=== PATIENT | male | born 1965 | race Two or more races ===

== ENCOUNTER → 2017-03-23 | Outpatient (CLI) | payer OTHER ==
--- NOTE | 2017-04-01 23:28 | ECWPNPC ---
PATIENT NAME: SEDRICK FORMAN : 1965 GENDER: MALE VISIT DATE: 03/23/2017 DISCHARGE DATE: 03/23/17 1445 VISIT LOCKED DATE TIME: PHYSICIAN: NHAN ESTES RESOURCE: NHAN ESTES REASON FOR APPOINTMENT 1. BACK PAIN HISTORY OF PRESENT ILLNESS HISTORY OF PRESENT ILLNESS: PAIN THE PATIENT DESCRIBES THE PAIN... FALL RISK SCREENING: SCREENING :NO FALLS IN THE PAST YEAR TODAY'S VISIT: NOTES: REFERRED BY DR BISWAS FOR NECK AND BACK PAIN. NECK IS THE WORST. HAD CERVICAL DISC FUSION WITH DR LOW 2000. HAD RELIEF OF NECK PAIN AND MIGRAINES. HAD NUMBNESS BEFORE SURGERY AND THIS IS RECURRRING IN LEFT ARM AND SHOULDER BLADE AREA. HAD SOME INJECTIONS AFTER SURGERY AND THIS WAS NOT HELPFUL. HAS BEEN WORKING WITH DR BISWAS TO START DBL PROCESS. EVERYTHING HURTS. LOWER BACK IS BETTER SINCE OUT OF WORK SINCE DECEMBER. JUST STARTED PT AT [facility]. IS BEING SCHEDULED FOR RIGHT HAND SURGERY AT [facility]. NO RECENT VISITS TO SURGEON. HAS NOT HAD A NCS. SLEEP IS DISRUPTED AND HAS BEEN FOR YEARS. STATES DID NOT LIKE TRAMADOLFEELING - GAVE NO RELIEF. DID HAVE SOME RELIEF WITH MELOXICAM. CURRENT MEDICATIONS UNKNOWN LISINOPRIL 10 MG TABLET ORAL DAILY UNKNOWN MELOXICAM 15 MG TABLET ORAL DAILY UNKNOWN OMEPRAZOLE 20 MG CAPSULE DELAYED RELEASE ORAL DAILY UNKNOWN TRAMADOL HCL 50 MG TABLET 1 TO 2 ORAL BID MEDICATION LIST REVIEWED AND RECONCILED WITH THE PATIENT PAST MEDICAL HISTORY ASTHMA GERD ECZEMA HERNIATED DISC MEASLES MUMPS ALLERGIES N.K.D.A. SURGICAL HISTORY CERVICAL FUSION C6-7 LEFT PARTIAL HIP ARTHROPLASTY R LEG VERICOSE VEIN STRIPPING X3 FAMILY HISTORY FATHER: ALIVE 77 YRS MOTHER: ALIVE 77 YRS 2 BROTHER(S) , 2 SISTER(S) - HEALTHY. 1 SON(S) . SOCIAL HISTORY GENERAL: TOBACCO USE ARE YOU A:FORMER SMOKER HOW LONG HAS IT BEEN SINCE YOU LAST SMOKED?> 10 YEARS LUNG CANCER SCREENING SMOKING STATUS:FORMER SMOKER ALCOHOL SCREENING POINTS0 INTERPRETATIONNEGATIVE SAMARITAN [id number] BAPTIST LANGUAGE LANGUAGES SPOKEN:TELUGU EDUCATION LEVEL OF EDUCATION:HIGH SCHOOL LEARNING BARRIERS / SPECIAL NEEDS VISION IMPAIRED?YES :CORRECTIVE LENSES COGNITIVELY IMPAIRED?NO READINESS TO LEARN?YES LEARNING PREFERENCES?YES :BOOKLETS, HANDOUTS EMOTIONAL BARRIERS?NO SPECIAL DEVICES?NO ADVANCE DIRECTIVES HEALTH CARE PROXY?NO WOULD YOU LIKE MORE INFORMATION?NO DO YOU HAVE A DNR?NO WOULD YOU LIKE MORE INFORMATION?NO LIVING WILL?NO WOULD YOU LIKE MORE INFORMATION?NO POWER OF DIRECTOR GLOBAL MARKET RESEARCH?NO HOSPITALIZATION/MAJOR DIAGNOSTIC PROCEDURE SURGERY RELATED REVIEW OF SYSTEMS REVIEWED BY: PROVIDER: NHAN HALE . CONSTITUTIONAL: ANY CHANGE IN YOUR MEDICAL CONDITION? NO . CHILLS NO . FEVER NO . INFECTION: DO YOU HAVE NEW INFECTIONS? NO . DO YOU HAVE HISTORY OF MRSA? NO . MUSCULOSKELETAL: ANY NEW PATTERNS OF PAIN OR NUMBNESS? NO . GASTROENTEROLOGY: ANY NEW CHANGE IN BOWEL CONTROL? NO . GENITOURINARY: ANY NEW CHANGE IN BLADDER CONTROL? NO . IS THERE A CHANCE YOU COULD BE ? NO . HEMATOLOGY/LYMPH: DO YOU TAKE ANY BLOOD THINNERS? (FOR EXAMPLE- COUMADIN, PLAVIX, AGGRENOX, PLATEL, PRADAXA, OR XARELTO) NO . WHEN WAS YOUR LAST DOSE? DATE: TIME: . NEUROLOGY: HAVE YOU FALLEN IN THE PAST 6 MONTHS? NO . ANY NEW EXTREMITY NUMBNESS OR WEAKNESS? NO . HEADACHE MIGRAINES CEASED AFTER CERVICAL FUSION - RARE MIGRAINE SINCE . CARDIOLOGY: DO YOU HAVE A PACEMAKER OR DEFIBRILLATOR? NO . RESPIRATORY: HAVE YOU BEEN SICK IN THE PAST WEEK? NO . FEVER NO . FLU LIKE SYMPTOMS? NO . COUGH NO . INTEGUMENTARY: DO YOU HAVE ANY RASHES OR OPEN SORES? NO . ALLERGIC/IMMUNO: ARE YOU ALLERGIC TO SHELLFISH OR IV DYE? NO . ANY NEW ALLERGIES? NO . PSYCHIATRIC: DO YOU HAVE THOUGHTS OF HURTING YOURSELF OR SOMEONE ELSE? NO . ARE YOU ABUSED, NEGLECTED, OR IN AN UNSAFE ENVIRONMENT? NO . ENDOCRINOLOGY: ARE YOU DIABETIC? NO . OTHER: DO YOU NEED ANY PRESCRIPTIONS? NO . IF YES, PLEASE LIST: ____ . ANY NEW PROBLEMS WITH YOUR MEDICATIONS? NO . WHEN DID YOU LAST EAT? ____ . WHEN DID YOU LAST DRINK? ____ . WHAT DID YOU LAST DRINK? ____ . NAME OF PERSON DRIVING YOU HOME? ____ . DO YOU HAVE ANY OTHER QUESTIONS OR CONCERNS NO . VITAL SIGNS WT 240 LBS, HT 69 IN, BMI 35.44 INDEX, BP 139/91 MM HG, HR 79 /MIN, RR 18 /MIN, TEMP 98.6 F, OXYGEN SAT % 97%, NA INITIALS AW 1338. EXAMINATION GENERAL EXAMINATION: GENERAL APPEARANCE:MORBID OBESITY, WELL GROOMED. PSYCHALERT , ORIENTED X 3 , APPROPRIATE MOOD AND AFFECT . HEENT:NORMOCEPHALIC, NO LYMPHADENOPATHY, NO THYROMEGLY. LUNGS:CLEAR TO AUSCULTATION BILATERALLY, NO WHEEZES, RALES OR RHONCHI. HEART:HEART RATE REGULAR, NORMAL S1S2, NO MURMURS, CLICK OR RUBS, NO CAROTID BRUITS. MUSCULOSKELETAL:POINT TENDER OVER CERVICAL SPINOUS PROCESSES. DECREASED ROM WITH NECK FLEXION, EXTENSION AND ROTATION. TRIGGER POINTS:AND TIGHT FIBROUS BANDS IDENTIFIED OVER LEFT SCAPULA., MUSCLE STRENGTH TESTING 5/5 BILATERAL UPPER AND LOWER EXTREMITIES. MANAGER NEONATAL STRENGTH EQUAL AND STRONG. ABLE T RISE TO STANDING POSITION. TENDER WITH PALPATION OVER LUMBAR SPINOUS PROCESSES AND ACROSS THE LUMBOSACRAL AXIS. CAN FLEX TO 45 DEGREES, EXTEND TO 10 DEGREES. . NEUROLOGIC EXAM:MUSCLE TWITCHING IN FACE, HIGH FREQUENCY TREMOR IN L>R UPPER EXTREMITY. DTR'S 1+ IN BILATERAL UPPER AND LOWER EXTREMITIES. NO SENSORY DEFICIET. PALNTAR RESPONSE IS FLEXOR. NO CLONUS. ASSESSMENTS CERVICAL POST-LAMINECTOMY SYNDROME - M96.1 (PRIMARY) MYALGIA - M79.1 TREATMENT CERVICAL POST-LAMINECTOMY SYNDROME START TIZANIDINE HCL TABLET, 2 MG, 1 TABLET NEEDED, ORALLY, TAKE 1-2 TABS AT BEDTIME, 30 DAY(S), 60, REFILLS 1 [facility] MRI C SPINE W/O FOLL BY [id number],SUSAN M 03/23/2017 2:32:03 PM > INCREASED RADICULAR PAIN POST CERVICAL FUSION NOTES: SCHEDULE FOR EMG/NCS BILATERAL UPPER EXTREMITIES (SPECIAL ATTENTION LUE) S/P CERVICAL FUSIONCONTINUE PHYSICAL THERAPYGET TENNIS BALL AND USE THIS TO APPLY PRESSURE TO TRIGGER POINTS ALONG RIGHT SHOULDER BLADE. PROCEDURE CODES FA211 ESTABILISHED PATIENT [facility] CHARGE DISPOSITION & COMMUNICATION FOLLOW UP 1 MONTH (REASON: NECK/BACK PAIN) ELECTRONICALLY SIGNED BY MEREDITH COOK ON 04/01/2017 AT 04:59 PM EDT DISCLAIMER : THIS IS A VISIT SUMMARY EXTRACTED FROM THE [employer] CHART. IT IS NOT A COPY OF THE [employer] PROGRESS NOTE. ZAYNAB
== END ==
LOC: M PAIN 13:30
PROVIDERS: ATTEND Nurse Practitioner Family
DX: M96.1 Postlaminectomy syndrome, not elsewhere classified (principal); M79.1 Myalgia; Z79.891 Long term (current) use of opiate analgesic; Z79.899 Other long term (current) drug therapy; Z87.891 Personal history of nicotine dependence

== ENCOUNTER → 2017-05-08 | Outpatient (CLI) | payer OTHER ==
--- NOTE | 2017-05-31 00:54 | ECWPNPC ---
PATIENT NAME: SEDRICK FORMAN : 1965 GENDER: MALE VISIT DATE: 05/08/2017 DISCHARGE DATE: 05/08/17 1415 VISIT LOCKED DATE TIME: PHYSICIAN: NHAN ESTES RESOURCE: NHAN ESTES REASON FOR APPOINTMENT 1. REVIEW MRI AND NCS HISTORY OF PRESENT ILLNESS HISTORY OF PRESENT ILLNESS: PAIN THE PATIENT DESCRIBES THE PAIN... FALL RISK SCREENING: SCREENING :NO FALLS IN THE PAST YEAR TODAY'S VISIT: NOTES: RATES PAIN TODAY 4/10. DESCRIBES PAIN ACHING. PAIN IS CENTERED AT BASE OF NECK AND AROUND THE FRONT OF THE NECK AND AT THE LEFT SHOULDER AND AT THE LEFT SHOULDER BLADE. . CURRENT MEDICATIONS TAKING LISINOPRIL 10 MG TABLET ORAL DAILY TAKING MELOXICAM 15 MG TABLET ORAL DAILY TAKING OMEPRAZOLE 20 MG CAPSULE DELAYED RELEASE ORAL DAILY NOT-TAKING TIZANIDINE HCL 2 MG TABLET 1 TABLET NEEDED ORALLY TAKE 1-2 TABS AT BEDTIME NOT-TAKING TRAMADOL HCL 50 MG TABLET 1 TO 2 ORAL BID MEDICATION LIST REVIEWED AND RECONCILED WITH THE PATIENT PAST MEDICAL HISTORY ASTHMA GERD ECZEMA HERNIATED DISC MEASLES MUMPS ALLERGIES N.K.D.A. SURGICAL HISTORY CERVICAL FUSION C6-7 LEFT PARTIAL HIP ARTHROPLASTY R LEG VERICOSE VEIN STRIPPING X3 RIGHT HAND CYST REMOVED AND TRIGGER FINGER Mar HOSPITALIZATION/MAJOR DIAGNOSTIC PROCEDURE SURGERY RELATED REVIEW OF SYSTEMS REVIEWED BY: PROVIDER: NHAN ESTES ROOF TECHNICIAN . CONSTITUTIONAL: ANY CHANGE IN YOUR MEDICAL CONDITION? NO . CHILLS NO . FEVER NO . INFECTION: DO YOU HAVE NEW INFECTIONS? NO . DO YOU HAVE HISTORY OF MRSA? NO . MUSCULOSKELETAL: ANY NEW PATTERNS OF PAIN OR NUMBNESS? NO . GASTROENTEROLOGY: ANY NEW CHANGE IN BOWEL CONTROL? NO . GENITOURINARY: ANY NEW CHANGE IN BLADDER CONTROL? NO . IS THERE A CHANCE YOU COULD BE ? NO . HEMATOLOGY/LYMPH: DO YOU TAKE ANY BLOOD THINNERS? (FOR EXAMPLE- COUMADIN, PLAVIX, AGGRENOX, PLATEL, PRADAXA, OR XARELTO) NO . WHEN WAS YOUR LAST DOSE? DATE: TIME: . NEUROLOGY: HAVE YOU FALLEN IN THE PAST 6 MONTHS? NO . ANY NEW EXTREMITY NUMBNESS OR WEAKNESS? NO . CARDIOLOGY: DO YOU HAVE A PACEMAKER OR DEFIBRILLATOR? NO . RESPIRATORY: HAVE YOU BEEN SICK IN THE PAST WEEK? NO . FEVER NO . FLU LIKE SYMPTOMS? NO . COUGH NO . INTEGUMENTARY: DO YOU HAVE ANY RASHES OR OPEN SORES? NO . ALLERGIC/IMMUNO: ARE YOU ALLERGIC TO SHELLFISH OR IV DYE? NO . ANY NEW ALLERGIES? NO . PSYCHIATRIC: DO YOU HAVE THOUGHTS OF HURTING YOURSELF OR SOMEONE ELSE? NO . ARE YOU ABUSED, NEGLECTED, OR IN AN UNSAFE ENVIRONMENT? NO . ENDOCRINOLOGY: ARE YOU DIABETIC? NO . OTHER: DO YOU NEED ANY PRESCRIPTIONS? NO . IF YES, PLEASE LIST: ____ . ANY NEW PROBLEMS WITH YOUR MEDICATIONS? NO . WHEN DID YOU LAST EAT? ____ . WHEN DID YOU LAST DRINK? ____ . WHAT DID YOU LAST DRINK? ____ . NAME OF PERSON DRIVING YOU HOME? ____ . DO YOU HAVE ANY OTHER QUESTIONS OR CONCERNS NO . VITAL SIGNS WT 253 LBS, HT 69 IN, BMI 37.36 INDEX, BP 173/95 MM HG, HR 77 /MIN, RR 16 /MIN, TEMP 98.1 F, OXYGEN SAT % 98, REVIEWED BY: NL. EXAMINATION GENERAL EXAMINATION: PSYCHALERT , ORIENTED X 3 , SOMEWHAT ANXIOUS. LUNGS:CLEAR TO AUSCULTATION BILATERALLY. HEART:HEART RATE REGULAR. MUSCULOSKELETAL:POINT TENDERNESS OVER CERVICAL AND LUMBAR SPINOUS PROCESSES. SLOW TO RISE TO STANDING POSITION. DECREASED DRAW BENCH OPERATOR STRENGTH LEFT UPPER EXTREMITY AND WITH LEFT HAMSTRING AND PLANTAR EXTENSION. , TRIGGER POINTS AND TIGHT FIBROUS BANDS IDENTIFIED OVER CERVICAL PARASPINOUS MUSCLES AND ACROSS TRAPEZIUS BILATERALLY. DIAGNOSTIC TESTS REVIEWEDEMG/NCS COMPLETED 05/03/15. DEMNSTRATES MILD TO MODERATE COMPRESSION OF LEFT ULNAR NERVE ACROSS THE ELBOW AND BILATERAL SUBACUTE C5-6 AND C6-7 RADICULOPATHY. MRI CERVICAL SPINE COMPLETED 04/20/17 DEMONSTRATES ANTERIOR FUSION PLATES WITH SPACER AT C6-7. THERE IS A SMALL SYRINX AT THIS LEVEL MEASURING 5MM IN LENGTH. THERE ARE DEGENERATIVE CHANGES AT THE C5-6 LEVEL WITH CENTRAL CANAL STENOSIS AND LEFT NEURAL FORAMINAL NARROWING. THERE IS STRAIGHTENING OF THE NORMAL LORDOSIS. MRI OF LUMBAR SPINE ALSO COMPLETED ON 04/20/17 DEMONSTRATES DEGENERATIVE CHANGES WITH FACET ARTHROSIS AT L4-5 MILD DISC PRTRUSION AT L4-5 AND L5-S1 WITH BILATERAL NEURAL FORAMENAL NARROWING AT L5-S1 WITH ENCROACHMENT ON THE LEFT L5 NERVE ROOT. . ASSESSMENTS CERVICAL POST-LAMINECTOMY SYNDROME - M96.1 (PRIMARY) MYALGIA - M79.1 LUMBAR DISC DISPLACEMENT WITHOUT MYELOPATHY - M51.26 LUMBAR FACET ARTHROPATHY - M12.88 TREATMENT CERVICAL POST-LAMINECTOMY SYNDROME START INDOMETHACIN CAPSULE, 50 MG, 1 CAPSULE WITH FOOD OR MILK, ORALLY, TWICE A DAY, 30 DAY(S), 60, REFILLS 1 STOP MELOXICAM TABLET, 15 MG, ORAL, DAILY STOP TIZANIDINE HCL TABLET, 2 MG, 1 TABLET NEEDED, ORALLY, TAKE 1-2 TABS AT BEDTIME TRIGGER POINT 3 + NHAN MO 05/08/2017 2:01:58 PM > NECK LEFT SHOULDER BLADE NOTES: WALK EVERY DAY. [facility] REASON:LEFT CERVICAL RADICULOPATHY, LEFT ULNAR COMPRESSION, EVIDENCE OF CERVICAL SYRINX - S/P C6-67 FUSION PREVENTIVE MEDICINE REVIEWED PRE PROCEUDRE CARE AND WENT OVER WHAT TO EXPECT WITH TPI / PT EXPRESSED UNDERSTANDING OF ALL. PROCEDURE CODES FA211 ESTABILISHED PATIENT [facility] CHARGE DISPOSITION & COMMUNICATION FOLLOW UP AFTER INJECTION (REASON: NECK PAIN/BACK PAIN) ELECTRONICALLY SIGNED BY MEREDITH COOK ON 05/30/2017 AT 01:33 PM EDT DISCLAIMER : THIS IS A VISIT SUMMARY EXTRACTED FROM THE [employer] CHART. IT IS NOT A COPY OF THE [employer] PROGRESS NOTE. ZAYNAB
== END ==
LOC: M PAIN 13:15
PROVIDERS: ATTEND Nurse Practitioner Family
DX: M96.1 Postlaminectomy syndrome, not elsewhere classified (principal); M79.1 Myalgia; M51.26 Other intervertebral disc displacement, lumbar region; M12.88 Other specific arthropathies, not elsewhere classified, other specified site; J45.909 Unspecified asthma, uncomplicated; K21.9 Gastro-esophageal reflux disease without esophagitis; Z79.899 Other long term (current) drug therapy

== ENCOUNTER → 2017-06-12 | Outpatient (CLI) | payer OTHER ==
[~2017-06-12] MED LIST: BUPIVACAINE HCL 0.25% 10 ML VIAL As Ordered ONE; BUPIVACAINE HCL 0.25% 30 ML VIAL As Ordered ONE; TRIAMCINOLONE ACETONIDE SUSP 40 MG/ML VIAL (J3301) As Ordered ONE; diazePAM 5 MG TAB As Ordered ONE
--- NOTE | 2017-06-25 00:03 | ECWPNPC ---
PATIENT NAME: SEDRICK FORMAN : 1965 GENDER: MALE VISIT DATE: 06/12/2017 DISCHARGE DATE: 06/12/17 1549 VISIT LOCKED DATE TIME: PHYSICIAN: JULIANA TAYLOR RESOURCE: JULIANA TAYLOR CURRENT MEDICATIONS TAKING LISINOPRIL 10 MG TABLET ORAL DAILY, NOTES: 06-12-17799 TAKING OMEPRAZOLE 20 MG CAPSULE DELAYED RELEASE ORAL DAILY, NOTES: 06-12-17799 TAKING CELECOXIB 200 MG CAPSULE 1 CAPSULE WITH FOOD ORALLY ONCE A DAY, NOTES: 06-12-17799 NOT-TAKING INDOMETHACIN 50 MG CAPSULE 1 CAPSULE WITH FOOD OR MILK ORALLY TWICE A DAY UNKNOWN TRAMADOL HCL 50 MG TABLET 1 TO 2 ORAL BID MEDICATION LIST REVIEWED AND RECONCILED WITH THE PATIENT PAST MEDICAL HISTORY ASTHMA GERD ECZEMA HERNIATED DISC MEASLES MUMPS ALLERGIES N.K.D.A. VITAL SIGNS WT 253 LBS, HT 69 IN, BMI 37.36 INDEX, BP 155/97 MM HG, HR 68 /MIN, RR 18 /MIN, TEMP 98.1 F, OXYGEN SAT % 97%, NA INITIALS SC 13:46. ASSESSMENTS MYALGIA - M79.1 (PRIMARY) PROCEDURES PN TRIGGER POINT INJECTION WITH STEROIDS PRE PROCEDURE DIAGNOSIS 1. MYALGIA 2. PAIN AT BILATERAL NECK AREA, BILATERAL SHOULDER AREA, AND BILATERAL THORACIC AREA POST PROCEDURE DIAGNOSIS 1. MYALGIA 2. PAIN AT BILATERAL NECK AREA, BILATERAL SHOULDER AREA, AND BILATERAL THORACIC AREA PROCEDURE TRIGGER POINT INJECTION AT BILATERAL NECK AREA, BILATERAL SHOULDER AREA, AND BILATERAL THORACIC AREA SURGEON DR. JULIANA TAYLOR UNDERCAR SPECIALIST NONE ANESTHESIA LOCAL PRE PROCEDURE NOTE THE PATIENT HAS A HISTORY OF CHRONIC PAIN AT THE RIGHT AND LEFT NECK AREA, RIGHT AND LEFT SHOULDER AREA AND RIGHT AND LEFT THORACIC AREA. I EVALUATE THE PATIENT AND REVIEWED THE CHART. THERE IS EVIDENCE OF BANDS OF TISSUE WITH RESTRICTION OF MOVEMENT AND PRESENCE OF TRIGGER POINT AT THE AFFECTED AREA. I WENT OVER THE RISKS, ALTERNATIVES, AND BENEFITS ASSOCIATED WITH THIS PROCEDURE. THE PATIENT WOULD LIKE TO PROCEED AND GIVE CONSENT TO PERFORMED THE PROCEDURE. THE PATIENT DENIES UNEXPLAINABLE WEIGHT LOSS, FEVER, CHILLS, OR NEW CHANGES IN URINARY OR BOWEL CONTROL DESCRIPTION OF PROCEDURE THE PATIENT WAS BROUGHT TO THE PROCEDURE ROOM AND PLACED IN THE SITTING POSITION. THE AREA WAS CLEANED WITH ALCOHOL. THE PROCEDURE WAS DONE USING ASE[employer]IC STERILE TECHNIQUE. I CHECKED LATERALITY AND THE LEVEL WHERE THE PROCEDURE WAS GOING TO BE PERFORMED WITH THE PATIENT AND THE SUPPORTING STAFF AT THE MOMENT OF THE TIME OUT IN THE PROCEDURE ROOM. USING A 25-GAUGE NEEDLE, TRIGGER POINTS WERE INJECTED AT THE RIGHT AND LEFT NECK AREA, RIGHT AND LEFT SHOULDER AREA AND RIGHT AND LEFT THORACIC AREA WITH A TOTAL OF 40 ML OF BUPIVACAINE 0.25% AND KENALOG 40 MG. THERE WAS NO EVIDENCE OF BLOOD, PARESTHESIA OR CEREBROSPINAL FLUID DURING THE PROCEDURE. THE PATIENT WAS SENT TO THE RECOVERY ROOM. THE PATIENT WAS MOVING THE EXTREMITIES AND DOING WELL. THERE WAS NO COMPLICATION DURING THE PROCEDURE POST PROCEDURE NOTE THE PATIENT WILL BE SEEN IN A FOLLOW UP IN THE NEXT FEW WEEKS. INSTRUCTIONS WERE GIVEN, QUESTIONS WERE ANSWERED, AND THE PATIENT EXPRESSED UNDERSTANDING AND AGREES WITH THE PLAN. I, SOLO CRUZ, DOCUMENTED THE ABOVE INFORMATION ACTING A SCRIBE FOR DR. TAYLOR. I HAVE REVIEWED THE ABOVE DOCUMENT, WRITTEN BY SOLO CARDENAS AND I VERIFY THAT IT IS ACCURATE PROCEDURE CODES 30673 INJECT TRIGGER POINTS 3/> DISPOSITION & COMMUNICATION FOLLOW UP 3 WEEKS ELECTRONICALLY SIGNED BY JULIANA TAYLOR MD ON 06/24/2017 AT 04:18 PM EST DISCLAIMER : THIS IS A VISIT SUMMARY EXTRACTED FROM THE [employer] CHART. IT IS NOT A COPY OF THE [employer] PROGRESS NOTE. MTDPatricio
== END ==
LOC: M PAIN 13:45
PROVIDERS: ATTEND Anesthesiology
DX: G89.29 Other chronic pain (principal); M79.1 Myalgia; K21.9 Gastro-esophageal reflux disease without esophagitis; Z79.899 Other long term (current) drug therapy
CPT/HCPCS: 20553; J3301

== ENCOUNTER → 2017-07-13 | Outpatient (CLI) | payer OTHER | LOC: M PAIN 10:45 | DX: M96.1 Postlaminectomy syndrome, not elsewhere classified (principal); M79.1 Myalgia; J45.909 Unspecified asthma, uncomplicated; K21.9 Gastro-esophageal reflux disease without esophagitis; Z96.642 Presence of left artificial hip joint; Z87.891 Personal history of nicotine dependence; Z79.899 Other long term (current) drug therapy | CPT/HCPCS: G0463 ==

== ENCOUNTER → 2017-08-10 | Outpatient (REF) | payer OTHER ==
[2017-08-10 11:46] LABS: BASO # 0.1 10^3/uL (0.0-0.2); BASO % 0.8 % (0.0-1.0); EOS # 0.3 10^3/uL (0.0-0.50); EOS % 4.5 % (0.0-3.0); HEMATOCRIT 42.4 % (42.0-52.0); HEMOGLOBIN 14.3 g/dl (14.0-18.0); IMMATURE GRANULOCYTE % 0.5 % (0-0); LYMPH # 1.9 10^3/uL (1.5-4.5); LYMPH % 29.7 % (24.0-44.0); MEAN CORPUSCULAR HEMOGLOBIN 29.4 pg (27.0-33.0); MEAN CORPUSCULAR HGB CONC 33.7 g/dl (32.0-36.5); MEAN CORPUSCULAR VOLUME 87.2 fl (80.0-96.0); MONO # 0.5 10^3/uL (0.0-0.8); NEUTROPHILS # 3.7 10^3/uL (1.8-7.7); NEUTROPHILS % 56.5 % (36.0-66.0); PLATELET COUNT, AUTOMATED 258 10^3/uL (150-450); RED BLOOD COUNT 4.86 10^6/uL (4.30-6.10); RED CELL DISTRIBUTION WIDTH 13.2 % (11.5-14.5); WHITE BLOOD COUNT 6.5 10^3/uL (4.0-10.0)
[2017-08-10 12:10] LABS: AMMONIA 34 uMOL/L (<32)
[2017-08-10 12:16] LABS: ERYTHROCYTE SEDIMENTATION RATE 20 mm/hr (0-20)
[2017-08-10 12:18] LABS: ESTIMATED AVERAGE GLUCOSE 117 MG/DL (60-110); HEMOGLOBIN A1c 5.7 %
[2017-08-10 12:28] LABS: ALBUMIN 3.9 GM/DL (3.2-5.2); ALBUMIN/GLOBULIN RATIO 1.18 (1.00-1.93); ALKALINE PHOSPHATASE 105 U/L (45-117); ALT/SGPT 47 U/L (12-78); ANION GAP 7 MEQ/L (8-16); AST/SGOT 27 U/L (7-37); BILIRUBIN,TOTAL 0.3 MG/DL (0.2-1.0); BLOOD UREA NITROGEN 17 MG/DL (7-18); CALCIUM LEVEL 8.9 MG/DL (8.5-10.1); CARBON DIOXIDE LEVEL 23 MEQ/L (21-32); CHLORIDE LEVEL 109 MEQ/L (98-107); CREATININE FOR GFR 0.92 MG/DL (0.70-1.30); GLOMERULAR FILTRATION RATE > 60.0 (>56); GLUCOSE, FASTING 107 MG/DL (70-105); POTASSIUM SERUM 4.4 MEQ/L (3.5-5.1); RHEUMATOID FACTOR QUANT 32.3 IU/ML (0-15.0); SODIUM LEVEL 139 MEQ/L (136-145); TOTAL PROTEIN 7.2 GM/DL (6.4-8.2)
[2017-08-10 16:31] LABS: VITAMIN B12 LEVEL 684 PG/ML
[2017-08-10 16:32] LABS: FOLATE 23.9 NG/ML
[2017-08-13 12:21] LABS: ALBUMIN 4.17 GM/DL (3.29-5.55); ALBUMIN % 57.9 % (55.8-66.1); ALPHA-1-GLOBULIN % 3.6 % (2.9-4.9); ALPHA-1-GLOBULINS 0.26 GM/DL (0.17-0.41); ALPHA-2-GLOBULINS 0.87 GM/DL (0.42-0.99); ALPHA-2-GLOBULINS % 12.1 % (7.1-11.8); BETA-1-GLOBULINS 0.45 GM/DL (0.28-0.60); BETA-1-GLOBULINS % 6.3 % (4.7-7.2); BETA-2-GLOBULINS % 5.6 % (3.2-6.5); GAMMA GLOBULIN % 14.5 % (11.1-18.8)
[2017-08-13 12:22] LABS: GAMMA GLOBULINS 1.04 GM/DL (0.65-1.58); SPEP INTERPRETATION SEE COMM
[2017-08-14 11:06] LABS: DRVV SCREEN 58.8 SEC
[2017-08-14 11:18] LABS: PTT LUPUS TYPE ANTICOAG SCREEN 1.4 (0-1.2)
[2017-08-17 00:06] LABS: ANCA-ATYPICAL <1:20 titer (Neg:<1:20); ANTI DOUBLE STRAND-DNA AB <1 IU/mL (0-9); ANTINUCLEAR ANTIBODIES DIRECT Negative (Negative); CYTOPLASMIC NEUTROP AB ANCA-C <1:20 titer (Neg:<1:20); PERINUCLEAR AB ANCA-P <1:20 titer (Neg:<1:20); SJOGREN'S ANTI SS-A <0.2 AI (0.0-0.9); SJOGREN'S ANTI SS-B <0.2 AI (0.0-0.9); VITAMIN B1 LEVEL WHOLE BLOOD 156.2 nmol/L (66.5-200.0); VITAMIN E LEVEL 11.2 mg/L (5.3-17.5)
[2017-08-18 00:07] LABS: HEXAGONAL PHASE PHOSPHOLIPID 6 sec (0-11)
== END ==
LOC: M LABNEURO 11:34
DX: G60.9 Hereditary and idiopathic neuropathy, unspecified (principal)
CPT/HCPCS: 82140

== ENCOUNTER → 2017-12-21 | Outpatient (CLI) | payer OTHER | LOC: M PAIN 11:00 | DX: M79.1 Myalgia (principal); M96.1 Postlaminectomy syndrome, not elsewhere classified; J45.909 Unspecified asthma, uncomplicated; K21.9 Gastro-esophageal reflux disease without esophagitis; L20.9 Atopic dermatitis, unspecified; Z79.899 Other long term (current) drug therapy; Z87.891 Personal history of nicotine dependence | CPT/HCPCS: G0463 ==

== ENCOUNTER → 2018-06-12 | Outpatient (CLI) | payer OTHER | LOC: M PAIN 10:00 | DX: M79.18 Myalgia, other site (principal); M96.1 Postlaminectomy syndrome, not elsewhere classified; J45.909 Unspecified asthma, uncomplicated; K21.9 Gastro-esophageal reflux disease without esophagitis; L30.9 Dermatitis, unspecified; M72.0 Palmar fascial fibromatosis [Dupuytren]; Z79.899 Other long term (current) drug therapy; Z87.891 Personal history of nicotine dependence | CPT/HCPCS: G0463 ==

== ENCOUNTER 2020-10-28 17:05 | Emergency (ER) | payer MEDICARE, OTHER ==
[~2020-10-28] VITALS: Ht 175.3 cm; Wt 117.1 kg
[2020-10-28] MEDS ORDERED: LISI10TA22 (17:16)
[2020-10-28] MEDS ORDERED: TRAM50TA2 (17:16)
[2020-10-28] MEDS ORDERED: OMEP-218 (17:16)
[2020-10-28] MEDS ORDERED: NS 1,000 ML IV ONE (18:30)
--- NOTE | 2020-10-28 18:51 | REP ---
INDICATION: CHEST PAIN. COMPARISON: None. TECHNIQUE: SINGLE PORTABLE AP VIEW OF THE CHEST WAS PERFORMED. FINDINGS: THERE IS NO ACUTE INFILTRATE OR PULMONARY EDEMA. LUNGS ARE CLEAR. HEART IS NOT SIGNIFICANTLY ENLARGED. MEDIASTINAL SILHOUETTE IS UNREMARKABLE. THE VISUALIZED OSSEOUS STRUCTURES ARE INTACT.Metallic plate and screws are seen in the lower cervical spine. IMPRESSION: NO ACUTE PULMONARY DISEASE. <Electronically signed by Grayson Abebe > 10/28/20 [id number]
[2020-10-28 19:14] LABS: BASO # 0.1 10^3/uL (0.0-0.2); BASO % 0.5 % (0.0-1.0); EOS # 0.1 10^3/uL (0.0-0.5); EOS % 1.1 % (0.0-3.0); HEMATOCRIT 46.7 % (42.0-52.0); HEMOGLOBIN 15.3 g/dl (13.5-17.5); LYMPH # 1.1 10^3/uL (1.5-5.0); LYMPH % 10.5 % (24.0-44.0); MEAN CORPUSCULAR HEMOGLOBIN 29.4 pg (27.0-33.0); MEAN CORPUSCULAR HGB CONC 32.8 g/dl (32.0-36.5); MEAN CORPUSCULAR VOLUME 89.8 fl (80.0-96.0); MONO # 0.5 10^3/uL (0.0-0.8); MONO % 4.7 % (2.0-8.0); NEUTROPHILS # 8.6 10^3/uL (1.5-8.5); NEUTROPHILS % 82.9 % (36.0-66.0); PLATELET COUNT, AUTOMATED 248 10^3/uL (150-450); WHITE BLOOD COUNT 10.4 10^3/uL (4.0-10.0)
[2020-10-28 19:43] LABS: ALBUMIN 4.3 GM/DL (3.2-5.2); ALT/SGPT 41 U/L (12-78); BILIRUBIN,DIRECT 0.2 MG/DL (0.0-0.2); BILIRUBIN,TOTAL 0.6 MG/DL (0.2-1.0); BLOOD UREA NITROGEN 18 MG/DL (7-18); CALCIUM LEVEL 9.1 MG/DL (8.5-10.1); CARBON DIOXIDE LEVEL 30 MEQ/L (21-32); CHLORIDE LEVEL 102 MEQ/L (98-107); CREATININE FOR GFR 1.03 MG/DL (0.70-1.30); GLOMERULAR FILTRATION RATE > 60.0 (>56); GLUCOSE, FASTING 100 MG/DL (70-100); LIPASE 79 U/L (73-393); NT-PRO BNP 30 PG/ML (<125); POTASSIUM SERUM 4.1 MEQ/L (3.5-5.1); SODIUM LEVEL 137 MEQ/L (136-145); TOTAL PROTEIN 7.8 GM/DL (6.4-8.2)
[2020-10-28 23:01] VITALS: BP 144/77
--- NOTE | 2020-10-29 06:40 | ECGEPIP ---
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
--- NOTE | 2020-10-29 06:47 | ECGEPIP ---
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
== END 2020-10-28 23:15 | disposition home or self-care (01) ==
LOC: M ED 17:05
DX: R42 Dizziness and giddiness (principal); T40.425A Adverse effect of tramadol, initial encounter; M19.90 Unspecified osteoarthritis, unspecified site; Z79.899 Other long term (current) drug therapy; Z87.898 Personal history of other specified conditions

== ENCOUNTER 2022-02-20 08:06 | Emergency (ER) | payer MEDICARE, OTHER ==
[~2022-02-20] VITALS: Ht 175.3 cm; Wt 109.1 kg
[~2022-02-20 08:06] MED LIST changes: -BUPIVACAINE HCL 0.25% 10 ML VIAL As Ordered ONE; -BUPIVACAINE HCL 0.25% 30 ML VIAL As Ordered ONE; +LISI10TA22; +OMEP-173; +TRAM50TA2; -TRIAMCINOLONE ACETONIDE SUSP 40 MG/ML VIAL (J3301) As Ordered ONE; -diazePAM 5 MG TAB As Ordered ONE
[2022-02-20] MEDS ORDERED: GABA-1171 (08:38)
[2022-02-20] MEDS ORDERED: CELE1CAP9 (08:38)
[2022-02-20 08:44] LABS: BASO % 0.7 % (0.0-1.0); EOS # 0.2 10^3/uL (0.0-0.5); EOS % 3.7 % (0.0-3.0); HEMOGLOBIN 15.1 g/dl (13.5-17.5); LYMPH # 1.7 10^3/uL (1.5-5.0); MEAN CORPUSCULAR HEMOGLOBIN 29.7 pg (27.0-33.0); MEAN CORPUSCULAR HGB CONC 33.6 g/dl (32.0-36.5); MEAN CORPUSCULAR VOLUME 88.6 fl (80.0-96.0); MONO # 0.5 10^3/uL (0.0-0.8); MONO % 8.8 % (2.0-8.0); NEUTROPHILS # 3.4 10^3/uL (1.5-8.5); NEUTROPHILS % 57.6 % (36.0-66.0); PLATELET COUNT, AUTOMATED 222 10^3/uL (150-450); RED BLOOD COUNT 5.08 10^6/uL (4.30-6.10); WHITE BLOOD COUNT 5.9 10^3/uL (4.0-10.0)
[2022-02-20 08:57] LABS: INR 0.93; PROTHROMBIN TIME 12.9 SECONDS (12.7-14.5)
[2022-02-20 08:58] LABS: PARTIAL THROMBOPLASTIN TIME 35.6 SECONDS (25.9-37.0)
[2022-02-20 09:09] LABS: BLOOD UREA NITROGEN 16 MG/DL (7-18); CALCIUM LEVEL 9.6 MG/DL (8.5-10.1); CARBON DIOXIDE LEVEL 23 MEQ/L (21-32); CHLORIDE LEVEL 109 MEQ/L (98-107); CREATININE FOR GFR 1.08 MG/DL (0.70-1.30); GLOMERULAR FILTRATION RATE > 60.0 (>56); GLUCOSE, FASTING 107 MG/DL (70-100); POTASSIUM SERUM 4.1 MEQ/L (3.5-5.1); SODIUM LEVEL 139 MEQ/L (136-145)
[2022-02-20 09:45] LABS: CK-MB VALUE MASS 1.5 NG/ML (<3.6); MB/CK RELATIVE INDEX 0.9 (< OR =4)
[2022-02-20 10:28] LABS: CK-MB VALUE MASS 1.4 NG/ML (<3.6); MB/CK RELATIVE INDEX 0.93 (< OR =4)
[2022-02-20 10:28] LABS: ALBUMIN 4.2 GM/DL (3.2-5.2); ALT/SGPT 30 U/L (12-78); BILIRUBIN,DIRECT 0.2 MG/DL (0.0-0.2); BILIRUBIN,TOTAL 0.7 MG/DL (0.2-1.0); TOTAL PROTEIN 7.7 GM/DL (6.4-8.2)
[2022-02-20 10:39] LABS: ERYTHROCYTE SEDIMENTATION RATE 7 mm/hr (0-20)
[2022-02-20 10:44] LABS: RSV AMPLIFICATION NEGATIVE (NEGATIVE)
[2022-02-20 13:31] VITALS: BP 137/82
== END 2022-02-20 13:45 | disposition home or self-care (01) ==
LOC: M ED 08:06
DX: R07.89 Other chest pain (principal); I10 Essential (primary) hypertension; M19.90 Unspecified osteoarthritis, unspecified site; Z79.899 Other long term (current) drug therapy; Z98.890 Other specified postprocedural states; Z82.49 Family history of ischemic heart disease and other diseases of the circulatory system

== ENCOUNTER 2022-05-31 08:25 | Emergency (ER) | payer MEDICARE, OTHER ==
[~2022-05-31] VITALS: Ht 175.3 cm; Wt 115.0 kg
[~2022-05-31 08:25] MED LIST changes: +CELE1CAP9; +GABA-1171
[2022-05-31] MEDS ORDERED: INDO-16 (08:37)
[2022-05-31 10:48] LABS: HEMOGLOBIN 13.8 g/dl (13.5-17.5); MEAN CORPUSCULAR HEMOGLOBIN 29.2 pg (27.0-33.0); MEAN CORPUSCULAR HGB CONC 32.9 g/dl (32.0-36.5); PLATELET COUNT, AUTOMATED 203 10^3/uL (150-450); RED BLOOD COUNT 4.72 10^6/uL (4.30-6.10); WHITE BLOOD COUNT 8.9 10^3/uL (4.0-10.0)
[2022-05-31 11:25] LABS: ALBUMIN 3.6 GM/DL (3.2-5.2); ALT/SGPT 35 U/L (12-78); BILIRUBIN,DIRECT < 0.1 MG/DL (0.0-0.2); BILIRUBIN,TOTAL 0.4 MG/DL (0.2-1.0); BLOOD UREA NITROGEN 21 MG/DL (7-18); CALCIUM LEVEL 8.9 MG/DL (8.5-10.1); CARBON DIOXIDE LEVEL 25 MEQ/L (21-32); CHLORIDE LEVEL 108 MEQ/L (98-107); CREATININE FOR GFR 1.15 MG/DL (0.70-1.30); GLOMERULAR FILTRATION RATE > 60.0 (>56); GLUCOSE, FASTING 116 MG/DL (70-100); LIPASE 107 U/L (73-393); POTASSIUM SERUM 4.4 MEQ/L (3.5-5.1); SODIUM LEVEL 139 MEQ/L (136-145); TOTAL PROTEIN 6.8 GM/DL (6.4-8.2)
[2022-05-31 11:46] VITALS: BP 151/69
== END 2022-05-31 11:58 | disposition home or self-care (01) ==
LOC: M ED 08:25
DX: R07.89 Other chest pain (principal); T39.395A Adverse effect of other nonsteroidal anti-inflammatory drugs [NSAID], initial encounter; I10 Essential (primary) hypertension; K21.9 Gastro-esophageal reflux disease without esophagitis; M19.90 Unspecified osteoarthritis, unspecified site; F17.200 Nicotine dependence, unspecified, uncomplicated; Z79.899 Other long term (current) drug therapy

== ENCOUNTER → 2022-06-27 | Outpatient (CLI) | payer MEDICARE, OTHER ==
[~2022-06-27] MED LIST changes: +INDO-16
== END ==
LOC: M SLEEP HO 12:02
PROVIDERS: ATTEND Internal Medicine Cardiovascular Disease
DX: G47.33 Obstructive sleep apnea (adult) (pediatric) (principal)